=== PATIENT | female | born 1985 | race Caucasian/White ===

== ENCOUNTER 2019-03-17 12:36 | Emergency (ER) | payer SELFPAY ==
--- NOTE | 2019-03-17 13:24 | ER Document Report ---
ED Medical Screen (RME) - General Chief Complaint: Alcohol Withdrawl Stated Complaint: DETOX Time Seen by Provider: 03/17/19 13:18 Notes: Patient is a 33-year-old female openly admits to alcohol and heroin abuse. She is coming to the emergency department for withdrawal symptoms. [facility] crisis is with patient at bedside. States patient voluntarily presented to their facility for detox. Provider at mobile crisis with the patient needed more medical attention which is why they present to the emergency room. Patient states she does have a history of seizures from alcohol withdrawal but is denying any seizures recently. Patient is answering questions calmly and is very cooperative. GENERAL: Alert, interacts well. No acute distress. PSYCH: Normal affect, normal mood. Patient's denying suicidal or homicidal ideations. I have greeted and performed a rapid initial assessment of this patient. A comprehensive ED assessment and evaluation of the patient, analysis of test results and completion of the medical decision making process will be conducted by additional ED providers. I have specifically instructed the patient or family members with the patient to immediately return to any nursing staff should anything change in the patient's condition or with their chief complaint. This medical record was dictated with voice recognizing software. There may be grammatical, syntax errors that are unintended. - Related Data Allergies/Adverse Reactions: amoxicillin Allergy (Verified 03/17/19 12:45) diphenhydramine [From Benadryl] Allergy (Verified 03/17/19 12:45) Penicillins Allergy (Verified 03/17/19 12:45) Physical Exam - Vital signs Vitals: Temp Pulse Resp BP Pulse Ox 98.2 F 80 16 136/88 H 100 03/17/19 12:45 03/17/19 12:45 03/17/19 12:45 03/17/19 12:45 03/17/19 12:45 Course - Vital Signs Vital signs: Temp Pulse Resp BP Pulse Ox 98.2 F 80 16 136/88 H 100 03/17/19 12:45 03/17/19 12:45 03/17/19 12:45 03/17/19 12:45 03/17/19 12:45
[2019-03-17 14:16] LABS: ABSOLUTE EOSINOPHILS # (AUTO) 0.1 10^3/uL (0.0-0.6); ABSOLUTE LYMPHOCYTES (AUTO) 2.1 10^3/uL (0.5-4.7); ABSOLUTE MONOCYTES (AUTO) 0.5 10^3/uL (0.1-1.4); ABSOLUTE NEUT (AUTO) 3.5 10^3/uL (1.7-8.2); BASOPHILS % (AUTO) 0.6 % (0-2); EOSINOPHILS % (AUTO) 1.1 % (0-6); HEMATOCRIT 36.4 % (36.0-47.0); HEMOGLOBIN 12.3 g/dL (12.0-15.5); LYMPHOCYTES % (AUTO) 33.5 % (13-45); MEAN CORPUSCULAR HGB CONC 33.9 g/dL (32.0-36.0); MEAN CORPUSCULAR VOLUME 92 fl (80-97); PLATELET COUNT 324 10^3/uL (150-450); RED BLOOD COUNT 3.98 10^6/uL (3.72-5.28); RED CELL DISTRIBUTION WIDTH 15.1 % (11.5-14.0); SEGMENTED NEUTROPHILS % (AUTO) 56.8 % (42-78); TOTAL CELLS COUNTED % (AUTO) 100 %; WHITE BLOOD COUNT 6.2 10^3/uL (4.0-10.5)
[2019-03-17 14:28] LABS: ALANINE AMINOTRANSFERASE 16 U/L (9-52); ALBUMIN 4.7 g/dL (3.5-5.0); ALKALINE PHOSPHATASE 83 U/L (38-126); ANION GAP 10 (5-19); ASPARTATE AMINO TRANSFERASE 18 U/L (14-36); BILIRUBIN,DIRECT 0.3 mg/dL (0.0-0.4); BILIRUBIN,TOTAL 0.7 mg/dL (0.2-1.3); BLOOD UREA NITROGEN 13 mg/dL (7-20); CALCIUM 9.9 mg/dL (8.4-10.2); CARBON DIOXIDE 26 mmol/L (22-30); CHLORIDE 106 mmol/L (98-107); GLUCOSE 91 mg/dL (75-110); POTASSIUM 4.2 mmol/L (3.6-5.0); TOTAL PROTEIN 8.1 g/dL (6.3-8.2)
[2019-03-17 14:30] LABS: ACETAMINOPHEN < 10 ug/mL (10-30); ALCOHOL < 10 mg/dL (NONE DETECTED); SALICYLATE < 1.0 mg/dL (2.0-20.0)
[2019-03-17] MEDS ORDERED: DIAZEPAM 5 MG TABLET PO ONE (16:37)
[2019-03-17] MEDS ORDERED: ONDANSETRON 4 MG TAB.RAPDIS PO ONE (16:37)
--- NOTE | 2019-03-17 16:37 | ER Document Report ---
ED General - General Chief Complaint: Alcohol Withdrawl Stated Complaint: DETOX Time Seen by Provider: 03/17/19 13:18 Notes: Patient is a 33-year-old female with history of alcohol abuse, and opiate abuse that presents to the emergency department for chief complaint of possible withdrawal and medical clearance. Patient had initially went to a detox center, and [facility] that recommended they come to the emergency department to be cleared, possibly treated for withdrawal. She states that she is last used heroin this past Wednesday, but has been using Subutex she obtained from the street, she really feels that she is withdrawing today though she has body aches all over, has nausea has had vomiting as well and diarrhea. She also drinks alcohol on a regular basis, sometimes up to 12 drinks daily, and her last drink was yesterday afternoon. She denies feeling palpitations, and denies having any suicidal or homicidal ideations, denies any delusions or confusion at home. She denies any seizure activity she has had withdrawal seizure remotely in the past of alcohol withdrawal, denies ever being admitted for alcohol withdrawal. She denies any numbness, tingling or weakness, chest pain, shortness of breath, difficulty breathing. No other complaints at this time. Past Medical History: ADHD, multi-substance abuse Past Surgical History: Denies recent or pertinent surgical history Social History: admits to drinking on a daily basis and regular heroin use. Lives with friends. Family History: Reviewed and noncontributory for presenting illness Allergies: Reviewed, see documented allergy list. REVIEW OF SYSTEMS: Other than noted above, the 12 point review of systems was reviewed with the patient and were negative, all pertinent findings are included in the HPI. PHYSICAL EXAMINATION: Vital signs reviewed, nursing noted reviewed. GENERAL: Patient is mildly anxious, but well-appearing, no acute distress. HEAD: Atraumatic, normocephalic. EYES: Eyes appear normal, extraocular movements intact, sclera anicteric, conjunctiva are normal. ENT: nares patent, oropharynx clear without exudates. Moist mucous membranes. NECK: Normal range of motion, supple without lymphadenopathy LUNGS: Breath sounds clear to auscultation bilaterally and equal. No wheezes rales or rhonchi. HEART: Regular rate and rhythm without murmurs ABDOMEN: Soft, nontender, normoactive bowel sounds. No rebound, guarding, or rigidity. No masses appreciated. EXTREMITIES: Nontender, good range of motion, no pitting or edema. NEUROLOGICAL: No focal neurological deficits. Moves all extremities spontan eously Motor and sensory grossly intact on exam. PSYCH: Patient is mildly anxious, but answering questions appropriately, does have rapid speech. SKIN: Warm, Dry, normal turgor, no rashes or lesions noted on exposed skin - Related Data Allergies/Adverse Reactions: amoxicillin Allergy (Verified 03/17/19 12:45) diphenhydramine [From Benadryl] Allergy (Verified 03/17/19 12:45) Penicillins Allergy (Verified 03/17/19 12:45) Past Medical History - Social History Smoking Status: Current Every Day Smoker Frequency of alcohol use: Heavy Drug Abuse: Heroin, Marijuana, Prescription drugs Family History: Reviewed & Not Pertinent Patient has suicidal ideation: No Patient has homicidal ideation: No Renal/ Medical History: Denies: Hx Peritoneal Dialysis Physical Exam - Vital signs Vitals: Temp Pulse Resp BP Pulse Ox 98.2 F 80 16 136/88 H 100 03/17/19 12:45 03/17/19 12:45 03/17/19 12:45 03/17/19 12:45 03/17/19 12:45 Course - Re-evaluation Re-evalutation: Patient seen and examined vital signs reviewed. Laboratory data and/or imaging were ordered as appropriate for the patient's presenting symptoms and complaint, with consideration of any critical or life threatening conditions that may be associated with their obtained history and exam as noted above. Patient was treated with p.o. Valium and Zofran Results were reviewed when available and demonstrated unremarkable blood work, negative alcohol, acetaminophen and salicylate The patient was re-evaluated and was stable, patient CIWA score was calculated as a 4 for me, however I felt the patient was more withdrawing from opiates as opposed to withdrawing from alcohol, she did not have any tachycardia or hy pertension, she was only mildly anxious, was complaining more of opiate withdrawal symptoms such as nausea, diarrhea, and itching, I felt the patient could be transferred back to the rehab facility, for detox, patient was agreeable to this plan of care, the detox facility did come to take the patient from the emergency department. Evaluation was most consistent with opiate withdrawal, anxiety Results were discussed with the patient at this point, after careful consideration I feel that that patient can be discharged from the emergency department, the patient was educated treatments and reasons to return to the emergency department based on their presumed diagnosis as noted above, they were advised to followup with a primary care physician in 2-3 days. Patient was agreeable to plan of care. *Note is created using voice recognition software and may contain spelling, syntax or grammatical errors. Laboratory 03/17/19 03/17/19 03/17/19 13:50 13:50 13:50 WBC 6.2 RBC 3.98 Hgb 12.3 Hct 36.4 MCV 92 MCH 31.0 MCHC 33.9 RDW 15.1 H Plt Count 324 Seg Neutrophils % 56.8 Lymphocytes % 33.5 Monocytes % 8.0 Eosinophils % 1.1 Basophils % 0.6 Absolute Neutrophils 3.5 Absolute Lymphocytes 2.1 Absolute Monocytes 0.5 Absolute Eosinophils 0.1 Absolute Basophils 0.0 Sodium 141.5 Potassium 4.2 Chloride 106 Carbon Dioxide 26 Anion Gap 10 BUN 13 Creatinine 0.78 Est GFR ( Amer) > 60 Est GFR (Non-Af Amer) > 60 Glucose 91 Calcium 9.9 Total Bilirubin 0.7 Direct Bilirubin 0.3 Neonat Total Bilirubin Not Reportable Neonat Direct Bilirubin Not Reportable Neonat Indirect Bili Not Reportable AST 18 ALT 16 Alkaline Phosphatase 83 Total Protein 8.1 Albumin 4.7 Serum HCG, Qual NEGATIVE Salicylates < 1.0 L Acetaminophen < 10 L Serum Alcohol < 10 - Vital Signs Vital signs: Temp Pulse Resp BP Pulse Ox 98.3 F 80 16 134/86 H 100 03/17/19 17:39 03/17/19 17:39 03/17/19 17:39 03/17/19 17:39 03/17/19 17:39 - Laboratory Result Diagrams: 03/17/19 13:50 03/17/19 13:50 Laboratory results interpreted by me: 03/17/19 03/17/19 13:50 13:50 RDW 15.1 H Salicylates < 1.0 L Acetaminophen < 10 L - EKG Interpretation by Me Additional EKG results interpreted by me: EKG demonstrates sinus rhythm with a ventricular rate of 69 bpm, normal axis, normal intervals, no evidence of acute ischemia in this EKG, no prior for comparison. Discharge - Discharge Clinical Impression: Opiate withdrawal, Alcohol abuse Condition: Stable Disposition: HOME, SELF-CARE Instructions: Chronic Alcoholism ([facility]) Additional Instructions: Please go to the rehab facility, for detox, [facility] if you have further concerns after your detox, and develop suicidal ideations, do not hesitate to return to the emergency department to be reevaluated.
[2019-03-17 17:40] VITALS: BP 134/86
--- NOTE | 2019-03-17 23:10 | EKG REPORT ---
SEVERITY:- NORMAL ECG - SINUS RHYTHM : Confirmed by: Rogerio Kwong 17-Mar-2019 23:10:17
== END 2019-03-17 17:40 | disposition home or self-care (01) ==
LOC: ER 12:36
DX: F10.239 Alcohol dependence with withdrawal, unspecified (principal); F11.23 Opioid dependence with withdrawal; M79.10 Myalgia, unspecified site; R11.2 Nausea with vomiting, unspecified; R19.7 Diarrhea, unspecified; F90.9 Attention-deficit hyperactivity disorder, unspecified type; F17.200 Nicotine dependence, unspecified, uncomplicated
CPT/HCPCS: 93005; 99285; 36415; 80307 ×3; 84703; 85025; 80053; 93010; S0119

== ENCOUNTER 2019-03-25 18:51 | Emergency (ER) | payer SELFPAY ==
[2019-03-25] MEDS ORDERED: NORMAL SALINE 1000 ML 1,000 ML IV ONE (20:23)
[2019-03-25] MEDS ORDERED: ONDANSETRON HCL INJ/PF 4 MG/2 ML SDV IV ONE (20:23)
[2019-03-25] MEDS ORDERED: ACETAMINOPHEN 325 MG TABLET PO ONE (20:26)
--- NOTE | 2019-03-25 20:27 | ER Document Report ---
Addendum entered and electronically signed by ANMOL NICOLE FNP 03/25/19 22:52: Procedures - Pelvic Exam Pelvic exam Time completed: 22:45 Cultures obtained: Yes Wet prep obtained: Yes Bimanual exam performed: Yes - Left adnexal pain Witnessed by: TAYA Notes: 03/25/19 22:51 The external genitalia was unremarkable and did not reveal any edema, erythema, skin breakdown or discharge. Patient tolerated the insertion of the speculum with minimal discomfort. I was able to visualize the cervix and there was a large amount of blood within the vaginal vault and around the closed cervix. There were tiny blood clots removed from the vagina. Original Note: ED Medical Screen (RME) - General Chief Complaint: Vag Bleeding, +preg <12wks Stated Complaint: VAGINAL BLEEDING Time Seen by Provider: 03/25/19 20:12 Notes: Patient is a 33-year-old female with a history of hepatitis C, PTSD, depression and anxiety who presents to the emergency department with a chief complaint of vaginal bleeding. Patient states this morning she woke up and noticed a large blood clot that came out of the vagina. Patient states she did have some heavy bleeding afterwards. Patient states now the bleeding has subsided and is more of a spotting. Patient states that she was seen at an ER in [facility] 3 weeks ago and diagnosed with a miscarriage. She stated that her hCG levels were too low. Patient states that they did not do a ultrasound but that they did do a pelvic examination. Patient states she is not due to start her period for another 2 weeks. Patient reports low-grade fever of 99.6 and 99.9 at home. Patient states she is also had a headache for 5 days but is generalized. Patient states it feels "like hot blood in my head." Patient states she has had some pelvic discomfort. Patient denies vaginal discharge prior to the bleeding. Patient states she has had nausea but has been taking Zofran for this. Patient states she was just released from a mental health facility yesterday. Patient reports taking Lexapro and Abilify but states these are not new medications for her. TRAVEL OUTSIDE OF THE [place] IN LAST 30 DAYS: No - Related Data Allergies/Adverse Reactions: amoxicillin Allergy (Verified 03/17/19 12:45) diphenhydramine [From Benadryl] Allergy (Verified 03/17/19 12:45) fluoxetine [From Prozac] Allergy (Verified 03/25/19 18:55) hydroxyzine [From Vistaril] Allergy (Verified 03/25/19 18:55) Penicillins Allergy (Verified 03/17/19 12:45) Past Medical History Renal/ Medical History: Denies: Hx Peritoneal Dialysis Psychiatric Medical History: Reports: Hx Depression Physical Exam - Vital signs Vitals: Temp Pulse Resp BP Pulse Ox 99.2 F 119 H 16 141/85 H 97 03/25/19 19:00 03/25/19 19:00 03/25/19 19:00 03/25/19 19:00 03/25/19 19:00 Interpretation: Tachycardic - Abdominal Inspection: Normal Distension: No distension Bowel sounds: Normal Tenderness: Nontender Course - Re-evaluation Re-evalutation: 03/25/19 20:26 I have greeted and performed a rapid initial assessment of this patient. A comprehensive ED assessment and evaluation of the patient, analysis of test results and completion of the medical decision making process will be conducted by additional ED providers. - Vital Signs Vital signs: Temp Pulse Resp BP Pulse Ox 99.2 F 119 H 16 141/85 H 97 03/25/19 19:00 03/25/19 19:00 03/25/19 19:00 03/25/19 19:00 03/25/19 19:00
[2019-03-25 20:46] LABS: APPEARANCE,URINE CLEAR; BILIRUBIN,URINE NEGATIVE (NEGATIVE); COLOR,URINE YELLOW; GLUCOSE, URINE NEGATIVE (NEGATIVE); KETONES,URINE NEGATIVE (NEGATIVE); LEUKOCYTE ESTERASE,URINE NEGATIVE (NEGATIVE); NITRITE,URINE NEGATIVE (NEGATIVE); PROTEIN,URINE NEGATIVE (NEGATIVE); URINE SPECIFIC GRAVITY 1.016; UROBILINOGEN,URINE NEGATIVE mg/dL (<2.0)
[2019-03-25 21:20] LABS: ABSOLUTE BASOPHILS # (AUTO) 0.1 10^3/uL (0.0-0.2); ABSOLUTE EOSINOPHILS # (AUTO) 0.1 10^3/uL (0.0-0.6); ABSOLUTE LYMPHOCYTES (AUTO) 2.3 10^3/uL (0.5-4.7); ABSOLUTE MONOCYTES (AUTO) 0.7 10^3/uL (0.1-1.4); ABSOLUTE NEUT (AUTO) 6.3 10^3/uL (1.7-8.2); BASOPHILS % (AUTO) 0.7 % (0-2); EOSINOPHILS % (AUTO) 0.8 % (0-6); HEMATOCRIT 36.5 % (36.0-47.0); HEMOGLOBIN 12.5 g/dL (12.0-15.5); LYMPHOCYTES % (AUTO) 24.9 % (13-45); MEAN CORPUSCULAR HEMOGLOBIN 30.9 pg (27.0-33.4); MEAN CORPUSCULAR HGB CONC 34.2 g/dL (32.0-36.0); MEAN CORPUSCULAR VOLUME 90 fl (80-97); MONOCYTES % (AUTO) 6.9 % (3-13); PLATELET COUNT 363 10^3/uL (150-450); RED BLOOD COUNT 4.04 10^6/uL (3.72-5.28); RED CELL DISTRIBUTION WIDTH 14.7 % (11.5-14.0); SEGMENTED NEUTROPHILS % (AUTO) 66.7 % (42-78); TOTAL CELLS COUNTED % (AUTO) 100 %; WHITE BLOOD COUNT 9.4 10^3/uL (4.0-10.5)
[2019-03-25] MEDS ORDERED: KETOROLAC TROMETHAMINE INJ/PF 30 MG/1 ML SDV IV ONE (21:20)
[2019-03-25 21:25] LABS: URINE AMPHETAMINES SCREEN NEGATIVE; URINE BARBITURATES SCREEN NEGATIVE; URINE BENZODIAZEPINES SCREEN UNCONFIRMED POSITIVE; URINE COCAINE SCREEN NEGATIVE; URINE MARIJUANA (THC) SCREEN NEGATIVE; URINE METHADONE SCREEN NEGATIVE; URINE PHENCYCLIDINE SCREEN NEGATIVE
[2019-03-25 21:42] LABS: ALBUMIN 4.5 g/dL (3.5-5.0); ALKALINE PHOSPHATASE 74 U/L (38-126); ANION GAP 11 (5-19); ASPARTATE AMINO TRANSFERASE 22 U/L (14-36); BILIRUBIN,DIRECT 0.2 mg/dL (0.0-0.4); BILIRUBIN,TOTAL 0.2 mg/dL (0.2-1.3); BLOOD UREA NITROGEN 18 mg/dL (7-20); CALCIUM 9.4 mg/dL (8.4-10.2); CARBON DIOXIDE 23 mmol/L (22-30); CHLORIDE 104 mmol/L (98-107); GLUCOSE 114 mg/dL (75-110); POTASSIUM 4.3 mmol/L (3.6-5.0)
[2019-03-25] MEDS ORDERED: OXYCODONE-ACETAMINOPHEN 5-325 MG TABLET PO ONE (22:49)
[2019-03-25] MEDS ORDERED: ACETAMINOPHEN WITH CODEINE #3 TABLET PO ONE (22:57)
[2019-03-25 23:03] LABS: T.VAGINALIS (WET MOUNT) NO TRICHOMONAS SEEN
[2019-03-25 23:04] LABS: BACTERIA (WET MOUNT) 4+ BACTERIA SEEN; RBCS (WET MOUNT) 4+ RBCS SEEN; WBCS (WET MOUNT) 1+ WBCS SEEN; YEAST (WET MOUNT) NO YEAST SEEN
--- NOTE | 2019-03-26 00:16 | RADIOLOGY REPORT (SQ) ---
EXAM DESCRIPTION: [facility]: US PELVIS TRANSVAGINAL CLINICAL HISTORY: 33 years Female left adnexal pain, vaginal bleeding TECHNIQUE: Endovaginal pelvic ultrasound was performed. COMPARISON: None. FINDINGS: Uterus: 8.1 x 4.1 x 5.4 cm, with 4 mm endometrial stripe. No uterine masses. Right ovary: 1.9 x 2.3 x 2.2 cm. Normal vascular flow on Doppler. Left ovary: 4.4 x 2.1 x 2 cm, with a 2 cm anechoic cyst, likely dominant follicle (no follow-up imaging is indicated). Normal vascular flow on Doppler. No free fluid. No adnexal masses. IMPRESSION: 1. Dominant left ovarian follicle. 2. No ovarian mass or torsion. 3. Normal uterus
[2019-03-26 00:26] LABS: CHLAM PCR NOT DETECTED (NOT DETECT)
--- NOTE | 2019-03-26 00:33 | ER Document Report ---
ED GI/ - General Chief Complaint: Vag Bleeding, +preg <12wks Stated Complaint: VAGINAL BLEEDING Time Seen by Provider: 03/25/19 20:12 Primary Care Provider: [facility] [Provider Group] - Follow up as needed [facility] [Provider Group] - Follow up as needed [facility] [Provider Group] - Follow up as needed Notes: Patient is a 33-year-old female with a history of hepatitis C, PTSD, depression and anxiety who presents to the emergency department with a chief complaint of vaginal bleeding. Patient states this morning she woke up and noticed a large blood clot that came out of the vagina. Patient states she did have some heavy bleeding afterwards. Patient states now the bleeding has subsided and is more of a spotting. Patient states that she was seen at an ER in [facility] 3 weeks ago and diagnosed with a miscarriage. She stated that her hCG levels were too low. Patient states that they did not do a ultrasound but that they did do a pelvic examination. Patient states she is not due to start her period for another 2 weeks. Patient reports low-grade fever of 99.6 and 99.9 at home. Patient states she is also had a headache for 5 days but is generalized. Patient states it feels "like hot blood in my head." Patient states she has had some pelvic discomfort. Patient denies vaginal discharge prior to the bleeding. Patient states she has had nausea but has been taking Zofran for this. Patient states she was just released from a mental health facility yesterday. Patient reports taking Lexapro and Abilify but states these are not new medications for her. TRAVEL OUTSIDE OF THE [place] IN LAST 30 DAYS: No - Related Data Allergies/Adverse Reactions: amoxicillin Allergy (Verified 03/17/19 12:45) diphenhydramine [From Benadryl] Allergy (Verified 03/17/19 12:45) fluoxetine [From Prozac] Allergy (Verified 03/25/19 18:55) hydroxyzine [From Vistaril] Allergy (Verified 03/25/19 18:55) Penicillins Allergy (Verified 03/17/19 12:45) Past Medical History - General Information source: Patient - Social History Smoking Status: Current Every Day Smoker Smoking Education Provided: Yes Frequency of alcohol use: None Drug Abuse: Heroin, Prescription drugs Lives with: Family Family History: Reviewed & Not Pertinent Patient has suicidal ideation: No Patient has homicidal ideation: No - Past Medical History Cardiac Medical History: Reports: None Pulmonary Medical History: Reports: None EENT Medical History: Reports: None Neurological Medical History: Reports: None Endocrine Medical History: Reports: None Renal/ Medical History: Reports: None. Denies: Hx Peritoneal Dialysis Malignancy Medical History: Reports: None GI Medical History: Reports: None Musculoskeletal Medical History: Reports None Skin Medical History: Reports None Psychiatric Medical History: Reports: Hx Depression Traumatic Medical History: Reports: None Infectious Medical History: Reports: None Surgical Hx: Negative Review of Systems - Review of Systems Constitutional: See HPI EENT: No symptoms reported Cardiovascular: No symptoms reported Respiratory: No symptoms reported Gastrointestinal: See HPI Genitourinary: See HPI Female Genitourinary: See HPI Musculoskeletal: No symptoms reported Skin: No symptoms reported Hematologic/Lymphatic: No symptoms reported Neurological/Psychological: No symptoms reported Physical Exam - Vital signs Vitals: Temp Pulse Resp BP Pulse Ox 99.2 F 119 H 16 141/85 H 97 03/25/19 19:00 03/25/19 19:00 03/25/19 19:00 03/25/19 19:00 03/25/19 19:00 Interpretation: Tachycardic - Notes Notes: GENERAL: Well-appearing, well-nourished and in no acute distress. HEAD: Atraumatic, normocephalic. EYES: Pupils equal round and reactive to light, extraocular movements intact, sclera anicteric, conjunctiva are normal. ENT: Nares patent, oropharynx clear without exudates. Moist mucous membranes. NECK: Normal range of motion, supple without lymphadenopathy or JVD. LUNGS: Breath sounds clear to auscultation bilaterally and equal. No wheezes rales or rhonchi. HEART: Regular rate and rhythm without murmurs, rubs or gallops. ABDOMEN: Soft, suprapubic tenderness, normoactive bowel sounds. No guarding, no rebound. No masses appreciated. BACK: No cervical, thoracic, lumbar midline tenderness. No saddle anesthesia, normal distal neurovascular exam. GENITOURINARY: Deferred. EXTREMITIES: Normal range of motion, no pitting or edema. No clubbing or cyanosis. NEUROLOGICAL: Cranial nerves II through XII grossly intact. Normal speech, normal gait. PSYCH: Normal mood, normal affect. SKIN: Warm, Dry, normal turgor, no rashes or lesions noted. Course - Re-evaluation Re-evalutation: 03/26/19 00:50 At time of discharge the patient's heart rate 120s. Patient denies chest pain o r palpitations. Patient reports she does have a history of SVT. Patient reports her heart rate is normally in the 100s. Patient states that she is extremely anxious and ready to leave as her ride is not answering the phone and she does not have a way to get home. I did inform the patient to return to the emergency department if she does develop chest pain, palpitations, shortness of breath or worsening of symptoms. Patient currently does not have any large amount of vaginal bleeding, is afebrile, and is normotensive. Patient does not have a white count and her lab work was primarily unremarkable although she does have bacterial vaginosis. The ultrasound was very reassuring. Patient is non toxic appearing and in no acute distress. - Vital Signs Vital signs: Temp Pulse Resp BP Pulse Ox 98.2 F 124 H 16 135/96 H 99 03/26/19 00:36 03/26/19 00:36 03/26/19 00:36 03/26/19 00:36 03/26/19 00:36 - Laboratory Result Diagrams: 03/25/19 21:01 03/25/19 21:01 Laboratory results interpreted by me: 03/25/19 03/25/19 03/25/19 19:27 21:01 21:01 RDW 14.7 H Glucose 114 H Urine Blood LARGE H 03/26/19 00:29 Laboratory 03/25/19 03/25/19 03/25/19 19:27 19:27 19:27 WBC RBC Hgb Hct MCV MCH MCHC RDW Plt Count Seg Neutrophils % Lymphocytes % Monocytes % Eosinophils % Basophils % Absolute Neutrophils Absolute Lymphocytes Absolute Monocytes Absolute Eosinophils Absolute Basophils Sodium Potassium Chloride Carbon Dioxide Anion Gap BUN Creatinine Est GFR ( Amer) Est GFR (Non-Af Amer) Glucose Calcium Total Bilirubin Direct Bilirubin Neonat Total Bilirubin Neonat Direct Bilirubin Neonat Indirect Bili AST ALT Alkaline Phosphatase Total Protein Albumin Beta HCG, Quant Total Beta HCG Urine Color YELLOW Urine Appearance CLEAR Urine pH 6.0 Ur Specific [place] 1.016 Urine Protein NEGATIVE Urine Glucose (UA) NEGATIVE Urine Ketones NEGATIVE Urine Blood LARGE H Urine Nitrite NEGATIVE Urine Bilirubin NEGATIVE Urine Urobilinogen NEGATIVE Ur Leukocyte Esterase NEGATIVE Urine WBC (Auto) 2 Urine RBC (Auto) 1 Urine Bacteria (Auto) 1+ Squamous Epi Cells Auto <1 Urine Mucus (Auto) RARE Urine Ascorbic Acid NEGATIVE Urine HCG, Qual NEGATIVE Bacteria (Wet Prep) Trichomonas (Wet Prep) Vaginal WBC Vaginal RBC Vaginal Yeast Urine Opiates Screen NEGATIVE Urine Methadone Screen NEGATIVE Ur Barbiturates Screen NEGATIVE Ur Phencyclidine Scrn NEGATIVE Ur Amphetamines Screen NEGATIVE U Benzodiazepines Scrn UNCONFIRMED POSITIVE Urine Cocaine Screen NEGATIVE U Marijuana (THC) Screen NEGATIVE 03/25/19 03/25/19 03/25/19 21:01 21:01 22:45 WBC 9.4 RBC 4.04 Hgb 12.5 Hct 36.5 MCV 90 MCH 30.9 MCHC 34.2 RDW 14.7 H Plt Count 363 Seg Neutrophils % 66.7 Lymphocytes % 24.9 Monocytes % 6.9 Eosinophils % 0.8 Basophils % 0.7 Absolute Neutrophils 6.3 Absolute Lymphocytes 2.3 Absolute Monocytes 0.7 Absolute Eosinophils 0.1 Absolute Basophils 0.1 Sodium 137.8 Potassium 4.3 Chloride 104 Carbon Dioxide 23 Anion Gap 11 BUN 18 Creatinine 0.73 Est GFR ( Amer) > 60 Est GFR (Non-Af Amer) > 60 Glucose 114 H Calcium 9.4 Total Bilirubin 0.2 Direct Bilirubin 0.2 Neonat Total Bilirubin Not Reportable Neonat Direct Bilirubin Not Reportable Neonat Indirect Bili Not Reportable AST 22 ALT 15 Alkaline Phosphatase 74 Total Protein 8.0 Albumin 4.5 Beta HCG, Quant < 2.39 Total Beta HCG NEGATIVE Urine Color Urine Appearance Urine pH Ur Specific [place] Urine Protein Urine Glucose (UA) Urine Ketones Urine Blood Urine Nitrite Urine Bilirubin Urine Urobilinogen Ur Leukocyte Esterase Urine WBC (Auto) Urine RBC (Auto) Urine Bacteria (Auto) Squamous Epi Cells Auto Urine Mucus (Auto) Urine Ascorbic Acid Urine HCG, Qual Bacteria (Wet Prep) 4+ BACTERIA SEEN Trichomonas (Wet Prep) NO TRICHOMONAS SEEN Vaginal WBC 1+ WBCS SEEN Vaginal RBC 4+ RBCS SEEN Vaginal Yeast NO YEAST SEEN Urine Opiates Screen Urine Methadone Screen Ur Barbiturates Screen Ur Phencyclidine Scrn Ur Amphetamines Screen U Benzodiazepines Scrn Urine Cocaine Screen U Marijuana (THC) Screen - Diagnostic Test Radiology results interpreted by me: 03/26/19 00:30 Transvaginal US 03/25/19 22:49 IMPRESSION: 1. Dominant left ovarian follicle. 2. No ovarian mass or torsion. 3. Normal uterus Discharge - Discharge Clinical Impression: Bacterial vaginosis, Pelvic pain Condition: Stable Disposition: HOME, SELF-CARE Additional Instructions: Today you were seen in the emergency department for vaginal bleeding and pelvic pain. Your pelvic specimens did show bacterial vaginosis. This is a condition where you have an overgrowth of bacteria in the vagina. You will be prescribed Flagyl which is an antibiotic. Do not drink alcohol while on this medication as this can cause you to become violently ill and vomit. Please return to the emergency department if you develop pelvic pain that is worse, fever, problems with urination or if you do not improve after receiving the Flagyl. Avoid sexual contact until your symptoms are all better. Your blood work and urine specimen did not show that you are at this time. The vaginal bleeding could be from starting her period. After having a miscarriage her body may have irregular periods until becomes adjusted. Please follow-up with the [facility]. Pelvic Pain There are many causes of pain in the pelvic area. The cause could be the tubes, ovaries, uterus, intestines, appendix, pelvic muscles and connective tissue, or the urinary tract. The cause of your pelvic pain is not clear. However, it seems safe to treat you outside the hospital. If the pain sounds like a temporary problem, we sometimes wait to see if it goes away. Other patients may need additional tests, such as pelvic ultrasound or cultures. Conditions may change. Call us or come back for reexamination if any problems occur, such as: (1) Pain that becomes more severe, steady, or becomes concentrated in one specific area. Also, pain that is more severe with movement or coughing. (2) Vomiting that persists or becomes more frequent. (3) Blood in the vomitus, urine, or bowel movements. Blood in the stool may have a tarry or black appearance. (4) Shaking chills or fever greater than 100 degrees. (5) The abdomen becomes more distended or swollen. (6) Bowel movements cease. (7) Heavy vaginal bleeding. Vaginosis, Bacterial Your exam shows you have bacterial vaginosis. This condition is due to an overgrowth of bacteria in the vagina. Symptoms may include vaginal itching or pain, a smelly discharge, and sometimes burning with urination. Normally this is not transmitted by sexual contact. Vaginosis can be treated with oral or topical antibiotics. Metronidazole (Flagyl) pills are usually effective. Topical vaginal creams include Cleocin and Metro-Gel. You should avoid sexual contact until your symptoms are all better. Call the doctor if you develop pelvic pain, fever, or problems with urination, or if you don't improve as expected. Prescriptions: Metronidazole [Flagyl 500 mg Tablet] 500 mg PO BID #14 tablet Forms: Smoking Cessation Education Referrals: [facility] [Provider Group] - Follow up as needed [facility] [Provider Group] - Follow up as needed [facility] [Provider Group] - Follow up as needed
[2019-03-26 00:50] VITALS: BP 135/96
== END 2019-03-26 00:45 | disposition home or self-care (01) ==
LOC: ER 18:51
DX: N76.0 Acute vaginitis (principal); B96.89 Other specified bacterial agents as the cause of diseases classified elsewhere; R10.2 Pelvic and perineal pain; R50.9 Fever, unspecified; R51 Headache; Z79.899 Other long term (current) drug therapy; F17.200 Nicotine dependence, unspecified, uncomplicated
CPT/HCPCS: 99284; 96361; 96374; 96375; 36415; 87210; 84702; 85025; 81025; 80053; 81001; 80307; 87491; 87591; 76830; 93976; J1885; J2405; J7030